=== PATIENT | male | born 1955 | race Asian ===

== ENCOUNTER 2017-11-23 15:06 | Outpatient (CLI) | payer OTHER ==
[2017-11-24] MEDS ORDERED: EQ ASPIRIN LOW81 MG PO (13:56)
[2017-11-24] MEDS ORDERED: TYLENOL325 MG PO (13:57)
[2017-11-24] MEDS ORDERED: VITAMIN D-31000 UNIT PO (13:58)
[2017-11-24] MEDS ORDERED: ELIQUIS5 MG PO (13:59)
[2017-11-24] MEDS ORDERED: VITAMIN B-122000 MCG PO (13:59)
[2017-11-24] MEDS ORDERED: MONTELUKAST SOD10 MG PO (14:00)
[2017-11-24] MEDS ORDERED: CETI10TA PO (14:02)
== END 2017-11-23 15:13 | disposition short-term general hospital (02) ==
LOC: AMB 15:06
DX: R53.1 Weakness (principal); R50.9 Fever, unspecified
CPT/HCPCS: A0425; A0429

== ENCOUNTER 2017-11-23 15:13 | Inpatient (IN) | payer OTHER ==
[~2017-11-23] VITALS: Ht 175.3 cm; Wt 82.7 kg
[2017-11-23 15:15] VITALS: BP 117/79; TEMP 99.1
[2017-11-23 17:32] LABS: PLATELET COUNT 187 K/uL (142-355)
[2017-11-23 17:44] LABS: POTASSIUM 4.1 mmol/L (3.6-5.2); SODIUM 133 mmol/L (136-145)
[2017-11-23 17:46] LABS: PARTIAL THROMBOPLASTIN TIME 25.9 SECONDS (24.5-33.6)
[2017-11-23 21:16] VITALS: BP 106/69; TEMP 97
[2017-11-23 22:19] VITALS: BP 114/81; TEMP 98; Ht 175.3 cm; Wt 82.7 kg
[2017-11-24] VITALS: BP 96/64; TEMP 97.7
[2017-11-24 04:00] VITALS: BP 112/77; TEMP 98.2
[2017-11-24 08:00] VITALS: BP 104/71; TEMP 97.4
[2017-11-24 12:00] VITALS: BP 92/65; TEMP 97.8
[2017-11-24] MEDS ORDERED: EQ ASPIRIN LOW81 MG PO (13:56)
[2017-11-24] MEDS ORDERED: TYLENOL325 MG PO (13:57)
[2017-11-24] MEDS ORDERED: VITAMIN D-31000 UNIT PO (13:58)
[2017-11-24] MEDS ORDERED: VITAMIN B-122000 MCG PO (13:59)
[2017-11-24] MEDS ORDERED: ELIQUIS5 MG PO (13:59)
[2017-11-24] MEDS ORDERED: MONTELUKAST SOD10 MG PO (14:00)
[2017-11-24] MEDS ORDERED: CETI10TA PO (14:02)
[2017-11-24 16:00] VITALS: BP 124/72; TEMP 99.2
[2017-11-24 19:44] VITALS: BP 126/73; TEMP 99.5
[2017-11-25] VITALS: BP 128/76; TEMP 97.5
[2017-11-25 04:26] VITALS: BP 153/90; TEMP 97.5
[2017-11-25 06:40] LABS: PLATELET COUNT 133 K/uL (142-355)
[2017-11-25 06:52] LABS: POTASSIUM 3.8 mmol/L (3.6-5.2)
[2017-11-25 08:00] VITALS: BP 126/77
[2017-11-25 12:00] VITALS: BP 121/69
[2017-11-25 16:00] VITALS: BP 112/57; TEMP 97.4
[2017-11-25 19:53] VITALS: BP 126/81; TEMP 97.5
[2017-11-26] VITALS: BP 115/62; TEMP 97.6
[2017-11-26 04:00] VITALS: BP 146/85; TEMP 97.8
[2017-11-26 05:36] LABS: PLATELET COUNT 164 K/uL (142-355)
[2017-11-26 06:05] LABS: POTASSIUM 3.7 mmol/L (3.6-5.2)
[2017-11-26 08:00] VITALS: BP 166/93; TEMP 97.8
[2017-11-26 11:58] VITALS: BP 144/72; TEMP 98
[2017-11-26 16:00] VITALS: BP 151/67; TEMP 98
[2017-11-26] MEDS ORDERED: PROAIR RES108 MCG/AC IN (16:52)
[2017-11-26] MEDS ORDERED: LEVAQUIN250 MG PO (16:52)
== END 2017-11-26 18:45 | disposition home or self-care (01) | DRG 194 ==
LOC: ED 15:13 → MED/SURG 20:18
PROVIDERS: ADMIT Specialist
DX: J18.8 Other pneumonia, unspecified organism (principal); I69.854 Hemiplegia and hemiparesis following other cerebrovascular disease affecting left non-dominant side; R06.4 Hyperventilation; E83.42 Hypomagnesemia; E86.9 Volume depletion, unspecified; E86.0 Dehydration; Z86.73 Personal history of transient ischemic attack (TIA), and cerebral infarction without residual deficits
CPT/HCPCS: 36415; 36600; 80053; 81000; 82550; 82553; 82805; 82948; 83605; 83735; 84100; 84484; 85027; 85379; 85610; 85730; 87040; 87077; 87185; 87186; 87205; 93005; 94640; 94664; 94760; 96365; 96372; 99284; J0456; J0696; J1885; J2930; J3411; J3475; J3490

== ENCOUNTER 2018-07-11 12:21 | Outpatient (CLI) | payer OTHER ==
[~2018-07-11 12:21] MED LIST: CETI10TA PO; ELIQUIS5 MG PO; EQ ASPIRIN LOW81 MG PO; LEVAQUIN250 MG PO; MONTELUKAST SOD10 MG PO; PROAIR RES108 MCG/AC IN; TYLENOL325 MG PO; VITAMIN B-122000 MCG PO; VITAMIN D-31000 UNIT PO
[2018-07-11 12:41] LABS: PLATELET COUNT 149 K/uL (142-355)
[2018-07-11 13:04] LABS: POTASSIUM 3.8 mmol/L (3.6-5.2)
== END 2018-07-11 19:42 | disposition home or self-care (01) ==
LOC: LABW 12:21
PROVIDERS: Specialist
DX: Z01.810 Encounter for preprocedural cardiovascular examination (principal); R93.1 Abnormal findings on diagnostic imaging of heart and coronary circulation
CPT/HCPCS: 36415; 80053; 85027

== ENCOUNTER 2018-11-01 17:50 | Emergency (ER) | payer OTHER ==
[~2018-11-01] VITALS: Ht 175.3 cm; Wt 84.4 kg
[2018-11-01 17:50] VITALS: TEMP 98.1
[2018-11-01 20:45] VITALS: BP 171/95
== END 2018-11-01 20:45 | disposition home or self-care (01) ==
LOC: ED 17:56
DX: S09.8XXA Other specified injuries of head, initial encounter (principal); W01.0XXA Fall on same level from slipping, tripping and stumbling without subsequent striking against object, initial encounter; Y92.098 Other place in other non-institutional residence as the place of occurrence of the external cause
CPT/HCPCS: 90471; 99283

== ENCOUNTER 2019-07-29 08:57 | Emergency (ER) | payer OTHER ==
[~2019-07-29] VITALS: Ht 175.3 cm; Wt 84.4 kg
[2019-07-29 09:09] VITALS: TEMP 97.9
[2019-07-29 09:53] LABS: PLATELET COUNT 136 K/uL (142-355)
[2019-07-29 10:00] LABS: POTASSIUM 5.7 mmol/L (3.6-5.2)
[2019-07-29 10:11] LABS: PARTIAL THROMBOPLASTIN TIME 26.8 SECONDS (24.5-33.6)
[2019-07-29 13:51] VITALS: BP 124/84
== END 2019-07-29 13:45 | disposition home or self-care (01) ==
LOC: ED 08:57
PROVIDERS: Family Medicine
DX: M79.602 Pain in left arm (principal); N28.9 Disorder of kidney and ureter, unspecified; R80.8 Other proteinuria; Z91.81 History of falling
CPT/HCPCS: 80053; 81000; 85027; 85610; 85730; 99283

== ENCOUNTER → 2019-07-29 | Outpatient (CLI) | payer OTHER | LOC: AMB 08:51 | DX: R41.0 Disorientation, unspecified (principal); R53.1 Weakness; M54.89 Other dorsalgia | CPT/HCPCS: A0425; A0429 ==

== ENCOUNTER 2019-09-19 09:17 | Outpatient (CLI) | payer OTHER | END 2019-09-19 09:20 | disposition short-term general hospital (02) | LOC: AMB 09:17 | DX: R11.2 Nausea with vomiting, unspecified (principal); R51 Headache; R41.82 Altered mental status, unspecified | CPT/HCPCS: A0425; A0427 ==

== ENCOUNTER 2019-09-19 09:22 | Emergency (ER) | payer OTHER ==
[~2019-09-19] VITALS: Ht 175.3 cm; Wt 83.5 kg
[2019-09-19 09:30] VITALS: TEMP 97.3
[2019-09-19 10:08] LABS: PLATELET COUNT 78 K/uL (142-355)
[2019-09-19 10:49] LABS: POTASSIUM 4.7 mmol/L (3.6-5.2); SODIUM 142 mmol/L (136-145)
[2019-09-19 10:58] LABS: PARTIAL THROMBOPLASTIN TIME 22.3 SECONDS (24.5-33.6)
[2019-09-19 19:15] VITALS: BP 124/88
== END 2019-09-19 19:21 | disposition short-term general hospital (02) ==
LOC: ED 09:22
PROVIDERS: Family Medicine
DX: R41.82 Altered mental status, unspecified (principal); N28.9 Disorder of kidney and ureter, unspecified; R06.02 Shortness of breath
CPT/HCPCS: 80053; 82550; 84484; 85027; 85379; 85610; 85730; 93005; 99284

== ENCOUNTER 2019-10-06 11:15 | Inpatient (IN) | payer OTHER ==
[~2019-10-06] VITALS: Ht 175.3 cm; Wt 79.2 kg
[2019-10-06] VITALS (11 sets, daily range): BP systolic 102–123; BP diastolic 61–81; TEMP 98.1–99.3; Ht 175.3 cm; Wt 79.2 kg
[2019-10-06 12:16] LABS: PLATELET COUNT 193 K/uL (142-355)
[2019-10-06 12:36] LABS: POTASSIUM 4.7 mmol/L (3.6-5.2)
[2019-10-07 00:17] VITALS: BP 116/75; TEMP 99.8
[2019-10-07 04:01] VITALS: BP 112/75; TEMP 98.6
[2019-10-07 05:46] LABS: PLATELET COUNT 191 K/uL (142-355)
[2019-10-07 06:26] LABS: POTASSIUM 4.3 mmol/L (3.6-5.2)
[2019-10-07 08:00] VITALS: BP 115/75; TEMP 98.2
[2019-10-07 12:00] VITALS: BP 105/69; TEMP 98.5
[2019-10-07 16:00] VITALS: BP 125/80; TEMP 99.5
[2019-10-07 20:00] VITALS: BP 125/76; TEMP 100.5
[2019-10-08] VITALS (7 sets, daily range): BP systolic 9–138; BP diastolic 58–92; TEMP 98.1–102
[2019-10-08 08:27] LABS: PLATELET COUNT 214 K/uL (142-355)
[2019-10-08 08:50] LABS: POTASSIUM 4.6 mmol/L (3.6-5.2)
[2019-10-09 03:54] VITALS: BP 96/53; TEMP 99.8
[2019-10-09 05:54] LABS: PLATELET COUNT 192 K/uL (142-355)
[2019-10-09 06:03] LABS: POTASSIUM 4.6 mmol/L (3.6-5.2)
[2019-10-09 08:00] VITALS: BP 115/73; TEMP 98.6
[2019-10-09 12:00] VITALS: BP 118/84; TEMP 99.1
[2019-10-09 16:00] VITALS: BP 123/72; TEMP 99.4
[2019-10-09 20:00] VITALS: BP 141/80; TEMP 100.9
[2019-10-10] VITALS (7 sets, daily range): BP systolic 125–158; BP diastolic 71–95; TEMP 97.8–101.5
[2019-10-10 05:32] LABS: PLATELET COUNT 252 K/uL (142-355)
[2019-10-10 05:53] LABS: POTASSIUM 4.3 mmol/L (3.6-5.2)
[2019-10-11 03:57] VITALS: BP 154/88; TEMP 98.2
[2019-10-11 05:15] LABS: PLATELET COUNT 297 K/uL (142-355)
[2019-10-11 05:29] LABS: POTASSIUM 4.6 mmol/L (3.6-5.2)
[2019-10-11 08:00] VITALS: BP 140/86; TEMP 98.8
[2019-10-11 12:00] VITALS: BP 127/79; TEMP 98.6
[2019-10-11 16:00] VITALS: BP 159/92; TEMP 98.2
[2019-10-11 20:00] VITALS: BP 146/85; TEMP 98.5
[2019-10-11 23:52] VITALS: BP 137/78; TEMP 98.4
[2019-10-12 04:00] VITALS: BP 151/79; TEMP 98.4
[2019-10-12 04:21] LABS: POTASSIUM 4.3 mmol/L (3.6-5.2)
[2019-10-12 04:25] LABS: PLATELET COUNT 274 K/uL (142-355)
[2019-10-12 08:00] VITALS: BP 142/88; TEMP 97.8
[2019-10-12 12:00] VITALS: BP 141/92; TEMP 98.8
[2019-10-12] MEDS ORDERED: DOXYCYCLINE100 MG PO (12:18)
== END 2019-10-12 17:10 | disposition home or self-care (01) | DRG 871 ==
LOC: ED 11:15 → MED/SURG 14:50
PROVIDERS: Internal Medicine; ADMIT Emergency Medicine
DX: A41.89 Other specified sepsis (principal); J18.8 Other pneumonia, unspecified organism; J96.01 Acute respiratory failure with hypoxia; N17.8 Other acute kidney failure; E87.1 Hypo-osmolality and hyponatremia; I12.0 Hypertensive chronic kidney disease with stage 5 chronic kidney disease or end stage renal disease; N18.5 Chronic kidney disease, stage 5; Z86.73 Personal history of transient ischemic attack (TIA), and cerebral infarction without residual deficits; I25.10 Atherosclerotic heart disease of native coronary artery without angina pectoris; E11.22 Type 2 diabetes mellitus with diabetic chronic kidney disease; D63.8 Anemia in other chronic diseases classified elsewhere; D50.8 Other iron deficiency anemias; D52.8 Other folate deficiency anemias
CPT/HCPCS: 36415; 80048; 80053; 80202; 82570; 82607; 82728; 82746; 83540; 83550; 84155; 85027; 87502; 87651; 94640; 94664; 94668; 94760; 96365; 96375; 99284; J0132; J1650; J1940; J2405; J2543; J2916; J3370; J3475

== ENCOUNTER 2020-08-23 10:04 | Outpatient (CLI) | payer OTHER ==
[~2020-08-23 10:04] MED LIST changes: +DOXYCYCLINE100 MG PO
== END 2020-08-23 20:29 | disposition home or self-care (01) ==
LOC: RAD 10:04
PROVIDERS: ATTEND Physician Assistant
DX: M25.562 Pain in left knee (principal); M25.552 Pain in left hip

== ENCOUNTER 2020-09-22 11:06 | Emergency (ER) | payer OTHER ==
[~2020-09-22] VITALS: Ht 175.3 cm; Wt 78.9 kg
[2020-09-22 11:06] VITALS: TEMP 99.1
[2020-09-22 12:07] LABS: PARTIAL THROMBOPLASTIN TIME 43.4 SECONDS (24.5-33.6)
[2020-09-22 15:08] VITALS: BP 128/78
== END 2020-09-22 15:08 | disposition home or self-care (01) ==
LOC: ED 11:06
PROVIDERS: Emergency Medicine
DX: I82.492 Acute embolism and thrombosis of other specified deep vein of left lower extremity (principal); M79.605 Pain in left leg; Z79.01 Long term (current) use of anticoagulants
CPT/HCPCS: 85610; 85730; 99283

== ENCOUNTER 2021-08-16 01:21 | Inpatient (IN) | payer OTHER ==
[~2021-08-16] VITALS: Ht 175.3 cm; Wt 74.0 kg
[2021-08-16 01:34] VITALS: BP 107/63; TEMP 98.2
[2021-08-16 02:04] LABS: PLATELET COUNT 111 K/uL (142-355)
[2021-08-16 02:31] LABS: POTASSIUM 5.5 mmol/L (3.6-5.2)
[2021-08-16 04:42] VITALS: BP 111/72; TEMP 97.8; Ht 175.3 cm; Wt 74.0 kg
[2021-08-16 08:00] VITALS: BP 96/62; TEMP 98
[2021-08-16 09:59] LABS: PLATELET COUNT 162 K/uL (142-355)
[2021-08-16 10:15] LABS: POTASSIUM 5.4 mmol/L (3.6-5.2)
[2021-08-16 12:00] VITALS: BP 123/75; TEMP 98.6
[2021-08-16 16:00] VITALS: BP 135/78; TEMP 98
[2021-08-16 17:34] LABS: POTASSIUM 5.3 mmol/L (3.6-5.2)
[2021-08-16 20:00] VITALS: BP 127/64; TEMP 98.2
[2021-08-17] VITALS: BP 110/73; TEMP 98.3
[2021-08-17 04:00] VITALS: BP 116/74; TEMP 98.1
[2021-08-17 05:44] LABS: PLATELET COUNT 102 K/uL (142-355)
[2021-08-17 08:00] VITALS: BP 127/72; TEMP 98.4
[2021-08-17] MEDS ORDERED: LEVE500T5 PO (08:21)
[2021-08-17] MEDS ORDERED: FE TABS325 MG PO (08:21)
[2021-08-17] MEDS ORDERED: D2000 ULTRA2000 UNIT PO (08:23)
[2021-08-17 12:00] VITALS: BP 131/75; TEMP 98.2
[2021-08-17] MEDS ORDERED: SENNA8.6 M1 PO (13:04)
[2021-08-17 16:00] VITALS: BP 131/75; TEMP 98.2
[2021-08-17 20:00] VITALS: BP 106/66; TEMP 97.4
[2021-08-18] VITALS: BP 104/66; TEMP 98.1
[2021-08-18 04:00] VITALS: BP 129/83; TEMP 97.9
[2021-08-18 04:49] LABS: PLATELET COUNT 146 K/uL (142-355)
[2021-08-18 05:12] LABS: POTASSIUM 4.6 mmol/L (3.6-5.2)
[2021-08-18 08:00] VITALS: BP 131/82; TEMP 97.7
[2021-08-18 12:00] VITALS: BP 129/82; TEMP 98.8
[2021-08-18 16:00] VITALS: BP 117/75; TEMP 97.9
[2021-08-18 20:00] VITALS: BP 122/81; TEMP 97.9
[2021-08-19] VITALS: BP 141/79; TEMP 98.3
[2021-08-19 04:10] VITALS: BP 129/99; TEMP 98.5
[2021-08-19 04:48] LABS: PLATELET COUNT 187 K/uL (142-355)
[2021-08-19 04:54] LABS: POTASSIUM 4.7 mmol/L (3.6-5.2)
[2021-08-19 08:00] VITALS: BP 130/80; TEMP 98.5
[2021-08-19 12:00] VITALS: BP 121/80; TEMP 98.5
[2021-08-19 16:00] VITALS: BP 120/78; TEMP 97.8
[2021-08-19 20:00] VITALS: BP 121/71; TEMP 98.4
[2021-08-20] VITALS (7 sets, daily range): BP systolic 94–136; BP diastolic 60–88; TEMP 98.1–99.3
[2021-08-20 05:07] LABS: POTASSIUM 4.7 mmol/L (3.6-5.2)
[2021-08-20 05:11] LABS: PLATELET COUNT 171 K/uL (142-355)
[2021-08-21 04:00] VITALS: BP 105/68; TEMP 99
[2021-08-21 07:09] LABS: PLATELET COUNT 183 K/uL (142-355)
[2021-08-21 07:32] LABS: POTASSIUM 4.4 mmol/L (3.6-5.2)
[2021-08-21 08:00] VITALS: BP 100/77; TEMP 98.6
[2021-08-21 12:00] VITALS: BP 114/75; TEMP 98.7
[2021-08-21 16:00] VITALS: BP 99/64; TEMP 98.5
[2021-08-21 20:00] VITALS: BP 143/88; TEMP 98.8
[2021-08-22] VITALS (7 sets, daily range): BP systolic 115–137; BP diastolic 76–87; TEMP 98.3–99.3
[2021-08-22 05:44] LABS: POTASSIUM 4.4 mmol/L (3.6-5.2)
[2021-08-22 05:56] LABS: PLATELET COUNT 170 K/uL (142-355)
[2021-08-23 04:24] VITALS: BP 121/83; TEMP 98.5
[2021-08-23 08:00] VITALS: BP 107/71; TEMP 98.1
[2021-08-23 12:00] VITALS: BP 128/89; TEMP 98.2
[2021-08-23 12:13] LABS: PLATELET COUNT 232 K/uL (142-355)
[2021-08-23 12:29] LABS: POTASSIUM 4.7 mmol/L (3.6-5.2)
[2021-08-23] MEDS ORDERED: ATOR20TA2 PO (14:29)
[2021-08-23] MEDS ORDERED: FERROUS SULF325 MG PO (14:30)
[2021-08-23] MEDS ORDERED: BENZONATATE100 MG PO (14:30)
[2021-08-23] MEDS ORDERED: MAGNSUS68 PO (14:31)
[2021-08-23] MEDS ORDERED: SODI650T PO (14:31)
[2021-08-23] MEDS ORDERED: PANTOPRAZOLE 40MG TA PO (14:32)
== END 2021-08-23 15:38 | disposition home or self-care (01) | DRG 682 ==
LOC: ED 01:21 → MED/SURG 03:44
PROVIDERS: Internal Medicine; Internal Medicine Nephrology; ADMIT Emergency Medicine; ATTEND Internal Medicine Endocrinology, Diabetes & Metabolism
DX: N17.8 Other acute kidney failure (principal); J15.29 Pneumonia due to other staphylococcus; I82.499 Acute embolism and thrombosis of other specified deep vein of unspecified lower extremity; I69.354 Hemiplegia and hemiparesis following cerebral infarction affecting left non-dominant side; G40.802 Other epilepsy, not intractable, without status epilepticus; N18.4 Chronic kidney disease, stage 4 (severe); E87.5 Hyperkalemia; E11.22 Type 2 diabetes mellitus with diabetic chronic kidney disease; I13.10 Hypertensive heart and chronic kidney disease without heart failure, with stage 1 through stage 4 chronic kidney disease, or unspecified chronic kidney disease; D63.8 Anemia in other chronic diseases classified elsewhere; E11.65 Type 2 diabetes mellitus with hyperglycemia; E21.2 Other hyperparathyroidism; R00.1 Bradycardia, unspecified; R62.7 Adult failure to thrive
CPT/HCPCS: 36415; 80048; 80053; 80061; 80074; 80202; 81000; 82306; 82570; 82607; 82728; 82746; 83036; 83516; 83540; 83550; 83605; 83880; 83970; 84100; 84155; 84300; 84439; 84443; 84484; 85027; 85379; 86038; 86160; 86255; 86592; 87040; 87077; 87185; 87186; 87205; 87535; 87635; 93005; 94640; 94664; 94760; 96360; 96361; 96365; 96366; 99284; J1956; G0432; J1953; J2060; J3370; U0003

== ENCOUNTER 2022-01-30 16:50 | Emergency (ER) | payer OTHER ==
[~2022-01-30] VITALS: Ht 175.3 cm; Wt 73.9 kg
[2022-01-30 16:50] VITALS: TEMP 97.8
[~2022-01-30 16:50] MED LIST changes: +ATOR20TA2 PO; +BENZONATATE100 MG PO; +D2000 ULTRA2000 UNIT PO; +FE TABS325 MG PO; +FERROUS SULF325 MG PO; +LEVE500T5 PO; +MAGNSUS68 PO; +PANTOPRAZOLE 40MG TA PO; +SENNA8.6 M1 PO; +SODI650T PO
[2022-01-30 17:26] LABS: PLATELET COUNT 117 K/uL (142-355)
[2022-01-30 17:34] LABS: POTASSIUM 4.8 mmol/L (3.6-5.2)
[2022-01-30 18:50] VITALS: BP 125/55
== END 2022-01-30 18:50 | disposition home or self-care (01) ==
LOC: ED 16:50
PROVIDERS: Emergency Medicine Emergency Medical Services
DX: M62.838 Other muscle spasm (principal); M50.30 Other cervical disc degeneration, unspecified cervical region
CPT/HCPCS: 80048; 83735; 85027; 96360; 99284

== ENCOUNTER 2022-02-08 13:49 | Outpatient (CLI) | payer OTHER | END 2022-02-08 19:44 | disposition home or self-care (01) | LOC: MRI 13:49 | PROVIDERS: ATTEND Physical Medicine & Rehabilitation | DX: M54.16 Radiculopathy, lumbar region (principal) ==

== ENCOUNTER 2022-02-23 04:08 | Emergency (ER) | payer OTHER ==
[~2022-02-23] VITALS: Ht 175.3 cm; Wt 74.8 kg
[2022-02-23 04:22] VITALS: TEMP 98.6
[2022-02-23 04:37] LABS: PLATELET COUNT 184 K/uL (142-355)
[2022-02-23 04:51] LABS: POTASSIUM 5.2 mmol/L (3.6-5.2)
[2022-02-23 06:40] VITALS: BP 135/83
[2022-02-23 07:06] LABS: POTASSIUM 5.2 mmol/L (3.6-5.2)
== END 2022-02-23 07:55 | disposition home or self-care (01) ==
LOC: ED 04:08
PROVIDERS: Emergency Medicine Emergency Medical Services
DX: E86.0 Dehydration (principal); N18.9 Chronic kidney disease, unspecified
CPT/HCPCS: 36415; 80048; 80053; 81002; 83735; 84484; 85027; 93005; 96360; 96374; 99284; J2405

== ENCOUNTER 2022-07-09 22:46 | Emergency (ER) | payer OTHER ==
[~2022-07-09] VITALS: Ht 175.3 cm; Wt 74.8 kg
[2022-07-10 01:13] LABS: PLATELET COUNT 122 K/uL (142-355)
[2022-07-10 01:24] LABS: POTASSIUM 4.5 mmol/L (3.6-5.2)
[2022-07-10 02:54] VITALS: BP 120/86; TEMP 97.9
== END 2022-07-10 02:54 | disposition home or self-care (01) ==
LOC: ED 22:46
PROVIDERS: Emergency Medicine
DX: H93.13 Tinnitus, bilateral (principal); N18.9 Chronic kidney disease, unspecified
CPT/HCPCS: 36415; 80053; 85027; 99283; J2270; J2405